=== PATIENT | female | born 1990 | race Caucasian/White ===

== ENCOUNTER 2016-10-21 12:09 | Emergency (ER) | payer OTHER ==
[~2016-10-21] VITALS: Ht 167.6 cm; Wt 109.1 kg
[~2016-10-21 12:09] MED LIST: PROM25SU46 RC
[2016-10-21 12:33] VITALS: BP 98/58; PULSE 65; RESP 16; O2SAT 98
--- NOTE | 2016-10-21 12:40 | ED.REPORT ---
HPI-Extremity Problem Lower Date of Service Oct 21, 2016 ED Provider: Angélica Dawson 26 year old female who is 8 months presents to the ER with a week of aching right foot pain, with right calf pain onset 2-3 days ago. She also reports swelling of the affected foot. Pain is localized in the lateral aspect and posterior sole of her foot and is exacerbated by ambulation. This morning the pain became unbearable when she was walking to the bathroom. Patient denies SOB, abdominal pain. She called the family [facility] and was referred to the ER. Nursing Notes Stated Complaint: RT FOOT PAIN AND LEG PAIN Chief Complaint: Extremity Trauma Nursing Notes Reviewed: Yes Allergies: Coded Allergies: No Known Allergies (Unverified , 05/06/16) Scheduled PRN Promethazine HCl (Phenergan) 25 Mg Supp.rect 25 MG RC TID PRN PRN For Nausea General Time Seen by MD: 12:40 Chief Complaint Leg injury right, Foot injury right Hx Obtained From: Patient Arrived By: Walk-in Onset Occurred: 1 week ago Symptom Duration: Since onset Location: : Foot right: Leg right Quality: Aching, Painful Severity: Current: Moderate Severity: Maximum: Moderate Associated with: Denies: Abdominal pain Pertinent Negative: Pt denies other symptoms Past Medical History Past Medical History Hx of miscarriage Past Surgical History None reported Social History Lives in detention Alcohol Use: Denies alcohol use Drug Use: Denies drug use Ambulatory Status Independent Review of Systems Constitutional: Denies: Chills, Fever Musculoskeletal: Reports: Extremity pain (Right foot/calf), Extremity swelling (Right foot/calf), Denies: Back pain, Joint pain, Lumbar pain, Neck pain Complete sys rev & neg: except as marked. Respiratory: Denies: Non-productive cough, Shortness of breath Cardiovascular: Denies: Chest pain Physical Exam Initial Vital Signs Vital Signs (First) Date Time Temp Pulse Resp B/P Pulse Ox O2 Delivery O2 Flow Rate FiO2 10/21/16 12:33 36.5 65 16 98/58 98 Initial VS: Reviewed General/Constitutional: Well-developed, Well-nourished Head / Eyes: Atraumatic, Normocephalic Neck: Supple, Non-tender, Full range of motion Upper Extremities: Vascular intact, Neuro intact, No swelling, No tenderness Skin: Warm, Dry, No cyanosis Neurologic: Alert, Oriented, Nonfocal Psychiatric: Mood/affect normal, Behavior normal, Normal thought content Lower Extremity / Pelvis / MS: Full range of motion, Neurologic intact, Vascular intact Right Leg / Calf: Positive: Swelling present... (Mild), Tenderness present... ( Mild), Negative: Ecchymosis present, Erythema present, Warmth present No palpable cords or bands in the right calf. Ankle / Foot: Full range of motion, Neurologic intact, Vascular intact Right Foot: Positive: Swelling present... (Mild), Tender calcaneous (anterior aspect), Tender plantar fascia, Tenderness present... (Mild) Respiratory / Chest: Breath sounds NL, Breath sounds = bilat, No respiratory distress, No rales, No rhonchi, No wheezing Cardiovascular: Heart rate NL, Regular rhythm, Heart sounds NL, Peripheral circulation NL Abdomen: Soft, Non-tender, No guarding, No rebound, No distention Gravid. Interpretation & Diagnostics US Soft Tissue/Musculoskeletal PROCEDURE: US VEINOUS LEG DUPLEX UNILATERAL, RIGHT INDICATIONS: RLE swelling and pain TECHNIQUE: Real-time imaging, as well as color and pulse Doppler interrogation, were performed of the lower extremity deep veins from the inguinal ligament to the popliteal fossa. COMPARISON: None. FINDINGS: The deep veins are normally compressible, and free of intraluminal thrombus. Color and pulse Doppler demonstrate normal phasic intraluminal flow. There is normal augmentation response to distal compression maneuver. IMPRESSION: No evidence of deep vein thrombosis involving the right lower extremity. Dictated by: Karin Vaughn MD, PhD on 10/21/2016 at 13:42 Approved by: Karin Vaughn MD, PhD on 10/21/2016 at 13:42 Re-Eval/Medical Decision Re-Evaluation/Progress : Time of Eval: 13:58 Re-Evaluation/Progress Note: Discussed US results and plan to discharge. Patient is amenable to the plan. Return precautions given. All other questions addressed. Counseled Regarding: Diagnosis, Lab results, Need for follow-up, When/why to return to ED Discharge & Departure Impression: Primary Impression: Plantar fasciitis of right foot Additional Impression: Leg pain, right Ruled Out: DVT (deep vein thrombosis) in Disposition: Home Discharge Condition All VS Reviewed: Yes Condition: Stable Patient Instructions: Plantar Fasciitis (ED) Additional Instructions: Your workup today was reassuring. I do not believe that there is any dangerous cause for your symptoms at this time. Your ultrasound results were normal; there was no indication of a blood clot in your leg. I think you are experiencing plantar fasciitis. Roll a frozen soda bottle on the bottom of your foot several times daily and apply ice for pain. Purchase and wear a posterior night splint at night. Take Tylenol as needed for pain. Follow-up with your OBGYN next week. You will also want to follow with your PCP for follow-up of the foot pain. Return to the ER if you develop worsening pain or swelling of your leg, chest pain, shortness of breath, or any other concerning symptoms. Referrals: NOPCP (PCP) Scott Attestation Portions of this note were transcribed by Martínez Belle. I, Dr. Lindsay personally performed the history, physical exam and medical decision-making; I reviewed and confirmed the accuracy of the information in the transcribed note. Signed by: Scott Fraga, 10/21/2016 and [Time]. Julito Lindsay DO Oct 21, 2016 12:40 MARTÍNEZ BELLE Oct 21, 2016 12:53
--- NOTE | 2016-10-21 13:44 | DRSVH ---
PROCEDURE: US VEINOUS LEG DUPLEX UNILATERAL, RIGHT INDICATIONS: RLE swelling and pain TECHNIQUE: Real-time imaging, as well as color and pulse Doppler interrogation, were performed of the lower extr emity deep veins from the inguinal ligament to the popliteal fossa. COMPARISON: None. FINDINGS: The deep veins are normally compressible, and free of intraluminal thrombus. Color and pu lse Doppler demonstrate normal phasic intraluminal flow. There is normal augmentation response to di stal compression maneuver. IMPRESSION: No evidence of deep vein thrombosis involving the right lower extremity. Dictated by: Karin Vaughn MD, PhD on 10/21/2016 at 13:42 Approved by: Karin Vaughn MD, PhD on 10/21/2016 at 13:42
== END 2016-10-21 14:15 | disposition home or self-care (01) ==
LOC: SED 12:09
DX: O99.89 Other specified diseases and conditions complicating pregnancy, childbirth and the puerperium (principal); M72.2 Plantar fascial fibromatosis; M79.604 Pain in right leg; Z3A.00 Weeks of gestation of pregnancy not specified

== ENCOUNTER 2017-02-05 18:58 | Emergency (ER) | payer OTHER ==
[~2017-02-05] VITALS: Ht 167.6 cm; Wt 104.5 kg
[2017-02-05 19:27] VITALS: BP 123/78; PULSE 88; RESP 16; O2SAT 99
--- NOTE | 2017-02-05 19:46 | ED.REPORT ---
HPI-Headache Date of Service February 05, 2017 ED Provider: Kimberley RodríguezO. A 26 year old female with a medical history including endometritis and migraines presents to the ED with a headache onset two days ago. The headache is similar to previous migraines. The patient also reports generalized myalgias and fever (101 last night). She was [place] [facility] [place] at onset, but her symptoms have worsened since. The patient denies other symptoms. Nursing Notes Stated Complaint: EXTREME MIGRAIN,HARD TO DO ANYTHING Chief Complaint: Headache Nursing Notes Reviewed: Yes Allergies: Coded Allergies: No Known Allergies (Unverified , 02/05/17) Scheduled PRN Promethazine HCl (Phenergan) 25 Mg Supp.rect 25 MG RC TID PRN PRN For Nausea General Time Seen by MD: 19:46 Chief Complaint Headache Hx Obtained From: Patient Arrived By: Walk-in Sudden in Onset?: No Onset Occurred: 2 days ago Symptom Duration: Since onset Location: : Generalized Quality: Painful Severity: Current: Moderate Severity: Maximum: Moderate Pertinent Negative: Relieved by nothing Related History: Reports: Headache, migraine hx Recent Healthcare: Recent doctor visit Similar Sx Previous: Yes Past Medical History Past Medical History Hx of miscarriage Plantar fasciitis of right foot Endometritis Migraines Past Surgical History None reported Smoking History Unknown if Ever Smoker Social History Lives in care home Alcohol Use: Denies alcohol use Drug Use: Denies drug use Other Social History: Good social support Ambulatory Status Independent Review of Systems Constitutional: Reports: Fever (101 last night) GI: Denies: Diarrhea, Vomiting Musculoskeletal: Reports: Myalgia (Generalized) Neurologic: Reports: Headache Complete sys rev & neg: except as marked. Respiratory: Denies: Non-productive cough, Shortness of breath Physical Exam Initial Vital Signs Vital Signs (First) Date Time Temp Pulse Resp B/P Pulse Ox O2 Delivery O2 Flow Rate FiO2 02/05/17 19:27 36.8 88 16 123/78 99 Room Air Initial VS: Reviewed ENT: Conjunctiva normal, No scleral icterus Respiratory: Breath sounds normal, Clear to auscultation, No respiratory distress Skin: Warm, Dry, No cyanosis Psychiatric: Mood/affect normal, Behavior normal, Normal thought content General/Constitutional: Awake, Alert Head / Eyes: Atraumatic, Normocephalic, PERRL (and reactive to accommodation ) , EOMI Neck: Atraumatic, Non-tender Mild neck stiffness with flexion Neurologic: Oriented X3, Speech NL, No motor deficits, No sensory deficits Cardiovascular: Heart rate NL, Heart sounds NL Occasional ectopy Interpretation & Diagnostics Lab Results Interpretation Result Diagram: 02/05/17200902/05/172009 Test 02/05/17 20:10 White Blood Count 9.9th/mm3 (3.8-10.1) Red Blood Count 4.36mil/mm3 (3.90-5.20) Hemoglobin 12.6g/dL (12.0-15.6) Hematocrit 38.2% (35.0-46.0) Mean Corpuscular Volume 87.6fL (81-100) Mean Corpuscular Hemoglobin 28.9pg (27.0-35.0) Mean Corpuscular Hemoglobin Concent 33.0% (32.0-37.0) Red Cell Distribution Width 11.8% (12.3-15.4) Platelet Count 388bil/L (150-400) Neutrophils (%) (Auto) 72.0% (40-74) Lymphocytes (%) (Auto) 19.1% (14-46) Monocytes (%) (Auto) 7.1% (4-12) Eosinophils (%) (Auto) 1.1% (0-5) Basophils (%) (Auto) 0.5% (0-3) Sodium Level 139mEq/L (134-144) Potassium Level 3.5mEq/L (3.5-5.2) Chloride Level 99mEq/L (97-108) Carbon Dioxide Level 23mmol/L (18-29) Blood Urea Nitrogen 11mg/dL (6-20) Creatinine 0.77mg/dL (0.57-1.00) Estimat Glomerular Filtration Rate 129mL/min (>59) Glucose Level 124mg/dL (60-99) Calcium Level 9.9mg/dL (8.5-10.1) Total Bilirubin 0.4mg/dL (0.0-1.2) Aspartate Amino Transf (AST/SGOT) 21U/L (0-50) Alanine Aminotransferase (ALT/SGPT) 31U/L (0-32) Alkaline Phosphatase 68U/L (25-150) C-Reactive Protein 0.1mg/dL (0.0-0.5) Total Protein 7.7g/dL (6.4-8.4) Albumin 4.4g/dL (3.4-5.0) Human Chorionic Gonadotropin, Qual Negative (Negative) Hold Cooley Top Tube Received (Received) CT Head Interpretation IMPRESSION: No acute intracranial abnormality. Dictated by: Monica Berry M.D. on 02/05/2017 at 20:51 Study: Head CT no contrast Interpretation / Wet Read by: Interpret - Radiologist Re-Eval/Medical Decision Med Decision/Clinical Course Headache was completely relieved with migraine cocktail. I explained the Nahomy and her family the need for lumbar puncture to rule out life-threatening illness. She feels much better and does not wish to undergo this. She does assure me that she will come back tomorrow we will perform this she has another headache otherwise she will follow up the referral neurologist. She was of sound mind and sound body. She was sober and lucid not hypoxic. I certainly could not force her to undergo a test against her will. Source of Hx: Old records Re-Evaluation/Progress #1: Time of Eval: 22:08 )( Patient Status: Condition improved Re-Evaluation/Progress Note: Discussed patient's case with her family. Re-Evaluation/Progress #2: Time of Eval: 00:30 Re-Evaluation/Progress Note: Discussed with patient CT results and plan for possible lumbar puncture. Possibility of subarachnoid hemorrhage and meningitis discussed in depth. Patient does not wish to undergo lumbar puncture. She is feeling better and requests to be discharged. Discussed with patient CT and lab results, diagnosis, and plan for discharge. Follow-up and return to the ER instructions given. Patient agrees with plan for care and all questions were addressed. Counseled Regarding: Diagnosis, Lab results, Need for follow-up, When/why to return to ED Discharge & Departure Impression: Primary Impression: Headache Headache type: unspecified Headache chronicity pattern: acute headache Intractability: not intractable Qualified Code: R51 - Headache Disposition: Home Discharge Condition All VS Reviewed: Yes Condition: Improved Patient Instructions: Acute Headache (ED), Migraine Headache (GEN) Additional Instructions: The CAT scan and laboratory work was all normal. A lumbar puncture however is required to completely rule out meningitis or subarachnoid hemorrhage as we discussed. So I would like you to return if you change your mind about this procedure or if you develop a fever or any neck stiffness or any new or worsening symptoms. Rest tonight. Do not drive. Set up a follow-up with your primary care physician as well as the referral neurologist. Do not hesitate to return if any problems or any new or worsening symptoms. Referrals: Luna Snyder DO (PCP) Barbra Maldonado MD Attestation Portions of this note were transcribed by Lisbeth Nunez. I, Dr. Braga, personally performed the history, physical exam, and medical decision-making; I reviewed and confirmed the accuracy of the information in the transcribed note. Signed by: Scott Francisco, 02/06/2017, 01:35 copies to: Barbra Maldonado MD; Luna Snyder Todd P DO February 05, 2017 19:46 LISBETH NUNEZ February 05, 2017 19:54
[2017-02-05] MEDS ORDERED: Dexamethasone Inj 10 MG in 0.9% Sodium Chloride-Pha MIX 50 ML IV ONE (19:55)
[2017-02-05] MEDS ORDERED: 0.9% Sodium Chloride 1,000 ML IV ONE (19:55)
[2017-02-05 20:27] LABS: BASOPHILS % (AUTO) 0.5 % (0-3); EOSINOPHILS % (AUTO) 1.1 % (0-5); MONOCYTES % (AUTO) 7.1 % (4-12); Mean Corpuscular Hemoglobin 28.9 pg (27.0-35.0); Mean Corpuscular Volume 87.6 fL (81-100); Platelet Count 388 bil/L (150-400)
--- NOTE | 2017-02-05 20:53 | DRSVH ---
PROCEDURE: CT BRAIN WITHOUT CONTRAST ([id number]) INDICATIONS: fever, headache, stiff neck TECHNIQUE: Noncontrast 4.5 mm thick angled axial sections acquired from the foramen magnum to the vertex, with c oronal reformats. COMPARISON: None. FINDINGS: Image quality: Excellent. CSF spaces: Basal cisterns are patent. No extra-axial fluid collections. Ventricles are normal in size and shape. Brain: No midline shift. No intracranial masses or hemorrhage. Barillas-white matter interface is norm al. Skull and face: Calvarium and visualized facial bones are intact, without suspicious lesions. Sinuses: Visualized sinuses and mastoids are clear. IMPRESSION: No acute intracranial abnormality. Dictated by: Monica Berry M.D. on 02/05/2017 at 20:51 Approved by: Monica Berry M.D. on 02/05/2017 at 20:52
[2017-02-05 22:07] VITALS: BP 137/67; PULSE 65; O2SAT 97
[2017-02-05] MEDS ORDERED: Haloperidol 5 mg/mL Inj IVPUSH ONE (22:10)
[2017-02-06 00:42] VITALS: BP 109/66; PULSE 60; RESP 16; O2SAT 97
== END 2017-02-06 00:47 | disposition home or self-care (01) ==
LOC: SED 18:58
DX: R51 Headache (principal); M79.1 Myalgia; R50.9 Fever, unspecified; G43.909 Migraine, unspecified, not intractable, without status migrainosus
CPT/HCPCS: 36415; 70450; 80053; 84703; 85025; 86140; 87040; 96361; 96365; 96375; 99285; J1100; J1200; J1630; J1885; J2060; J7030